=== PATIENT | male | born 1940 ===

== ENCOUNTER 2023-01-15 17:57 | Emergency (ER) | payer MEDICAID, SELFPAY ==
[2023-01-15 18:09] VITALS: BP 110/70; PULSE 88; O2SAT 98
[2023-01-15 18:24] VITALS: BP 106/54; PULSE 81; RESP 18; TEMP 36.9; O2SAT 98; BMI 23.3
[2023-01-15 18:28] VITALS: RESP 18
--- NOTE | 2023-01-15 18:32 | PC.NURSE ---
Pt coming from SN[facility] with unknown mental status baseline, unwitnessed fall, unsure of LOC, pt not on blood thinners,patient alert to self. respirations equal and unlabored. skin warm, pink and moist. denies pain. left hand swollen.
--- NOTE | 2023-01-15 19:49 | ED.GENADULT ---
HPI - General Adult General Chief complaint: Altered Mental Status Stated complaint: BROOKS W/AMS SINCE 9AM,FALL DAYS AGO, FROM SNF Time Seen by Provider: 01/15/23 19:33 Source: patient, EMS and RN notes reviewed Mode of arrival: EMS Limitations: altered mental status History of Present Illness HPI narrative: 82-year-old male [facility] from [facility] for evaluation of left-sided swelling and headache. Patient was diagnosed with GBM and due to low blood counts patient is only getting palliative chemotherapy with no further surgery or radiation patient normally is delusional and confused at times baseline mental status is not entirely clear. Patient is complaining of headache that he described as 4/5, headache has been going for few months it is waxing and weaning. Related Data Allergies Allergy/AdvReac Type Severity Reaction Status Date / Time codeine Allergy Unknown Verified 01/15/23 23:26 Review of Systems Review of Systems: Yes all other systems are reviewed and are negative [facility] Social History Social History Alcohol intake: never Smoked in Last 30 Days: No Use of substances other than those prescribed or required for medical reasons: No Advance Directives: No Advance Directives Information Provided: No Physical Exam ED Vital Signs: Vital Signs - 24 hr 01/15/23 18:24 01/15/23 18:28 01/15/23 20:03 Temperature 98.4 F 98.3 F Pulse Rate 81 75 Respiratory Rate 18 18 14 Blood Pressure 106/54 L 115/43 L Pulse Oximetry 98 97 Oxygen Delivery Method Room Air Room Air 01/15/23 21:54 Temperature Pulse Rate 80 Respiratory Rate 13 Blood Pressure 118/40 L Pulse Oximetry Oxygen Delivery Method BMI result Body Mass Index 23.3 Vital signs have been reviewed as appeared to be correct. Blood pressure normal. Heart rate normal. Respiration rate normal. Temperature normal. Oxygen saturation normal. Appearance: Alert. Oriented. No acute distress. Head: Normal external exam. Normocephalic. Atraumatic. No Blair signs noted. No raccoon eyes noted Eyes: PERRLA. EOMI. Conjunctiva and sclera normal. Eyelids normal. ENT: TM's Normal. Pharynx normal. Uvula midline. Moist mucous membranes. No trismus noted. No drooling noted. No muffled voice noted. Neck: Normal inspection. Neck supple. FROM. No adenopathy. Thyroid Normal. No meningeal signs. No neck mass noted. Midline tenderness of the cervical spine, no step-off, deformity. CVS: Normal heart rate and rhythm. Heart sound normal. No murmurs noted. Pulses normal throughout. Respiratory: No respiratory distress. Painless inspiration. Breath sounds normal. No wheezes/rales/rhonchi noted. Chest nontender. No accessory muscle usage noted or decreased air movement noted. Abdomen: Soft and nontender. Bowel sounds normal in all 4 quadrants. No distention noted. No organomegaly noted. No visible injury noted. Back: No CVA tenderness. Full range of motion noted. Skin: Skin warm and dry. Normal skin color. Normal skin turgor. No rashes/lesions/lacerations noted. Extremities: No lower extremity edema. Extremities exhibit normal range of motion. Extremities nontender. Neuro: Oriented. Cranial nerve exam: II-XII are grossly intact No motor deficit. No sensory deficit. Reflexes normal. Course Course Course Narrative: 82-year-old male complaining of headache and neck pain C-spine show indeterminate posterior lateral arch of C1 and nondisplaced lateral mass C2 fracture. Neurovascularly intact to both upper extremities no deficit, no weakness. The case was discussed with Dr. pelletier at [facility] patient was accepted to be evaluated by trauma team at [facility], will arrange for transportation. C-spine immobilization precaution was applied. Medical Decision Making Differential Diagnosis Differential Diagnoses: The differential diagnosis associated with the presentation includes (Intra cranial bleed, cervical spine fracture, severe anemia, electrolytes abnormalities, neurological deficit.) Admission/Observation Consideration of admission/observation: Escalation of care including admission/observation considered Lab Data MDM Lab Attestation statement: I reviewed the patient's lab results. 01/15/23 19:50 01/15/23 19:50 Labs: Lab Results 01/15/23 01/15/23 01/15/23 Range/Units 19:50 19:50 19:50 WBC 7.4 (4.8-10.8) X10*3/uL RBC 3.47 L (4.60-5.80) X10*6/uL Hgb 10.8 L (14.0-18.0) g/dl Hct 33.1 L (42.0-52.0) % MCV 95.4 (80.0-98.0) fL MCH 31.1 (27.0-33.0) pg MCHC 32.6 (31.0-36.0) g/dl RDW 13.9 (11.0-16.0) % Plt Count 170 (160-400) X10*3/uL MPV 9.0 L (9.4-12.4) fL Immature Gran % (Auto) 0.3 (0.0-0.4) % Neut % (Auto) 74.6 H (45-73) % Lymph % (Auto) 15.5 L (20-40) % [place] % (Auto) 6.5 (2-11) % Eos % (Auto) 2.8 (0-4) % Baso % (Auto) 0.3 (0-2) % Lymph # (Auto) 1.1 L (1.2-4.9) X10*3/uL [place] # (Auto) 0.5 (0.1-1.2) X10*3/uL Eos # (Auto) 0.2 (0.0-0.4) X10*3/uL Baso # (Auto) 0.0 (0.0-0.2) X10*3/uL Abs Immat Gran (auto) 0.02 (0.00-0.03) X10*3/uL Absolute Neuts (auto) 5.5 (2.0-8.3) x10*3/uL Absolute Nucleated RBC 0.000 (0.0-0.012) X10*3/uL Nucleated RBC % (auto) 0.0 (0.0-0.2) /100WBC Sodium 142 (135-145) mmol/L Potassium 3.7 (3.3-5.1) mmol/L Chloride 107 (96-108) mmol/L Carbon Dioxide 26 (22-29) mmol/L Anion Gap 13 (12-20) BUN 19 H (9-16) mg/dL Creatinine 1.01 (0.5-1.4) mg/dL Estim Creat Clear Calc 62.9 Estimated GFR > 60 Random Glucose 95 (60-115) mg/dL Calcium 10.0 (8.4-10.2) mg/dL Magnesium 1.9 (1.6-2.6) mg/dL Total Bilirubin 0.2 (0.0-1.0) mg/dL AST 11 (5-37) U/L ALT 9 (0-40) U/L Alkaline Phosphatase 79 (39-117) U/L Troponin I High Sens 4.9 (<3.5-35.0) ng/L B-Natriuretic Peptide (<100) pg/mL Total Protein 6.5 (6.5-8.0) g/dL Albumin 3.4 L (3.5-5.0) g/dL 01/15/23 Range/Units 19:50 WBC (4.8-10.8) X10*3/uL RBC (4.60-5.80) X10*6/uL Hgb (14.0-18.0) g/dl Hct (42.0-52.0) % MCV (80.0-98.0) fL MCH (27.0-33.0) pg MCHC (31.0-36.0) g/dl RDW (11.0-16.0) % Plt Count (160-400) X10*3/uL MPV (9.4-12.4) fL Immature Gran % (Auto) (0.0-0.4) % Neut % (Auto) (45-73) % Lymph % (Auto) (20-40) % [place] % (Auto) (2-11) % Eos % (Auto) (0-4) % Baso % (Auto) (0-2) % Lymph # (Auto) (1.2-4.9) X10*3/uL [place] # (Auto) (0.1-1.2) X10*3/uL Eos # (Auto) (0.0-0.4) X10*3/uL Baso # (Auto) (0.0-0.2) X10*3/uL Abs Immat Gran (auto) (0.00-0.03) X10*3/uL Absolute Neuts (auto) (2.0-8.3) x10*3/uL Absolute Nucleated RBC (0.0-0.012) X10*3/uL Nucleated RBC % (auto) (0.0-0.2) /100WBC Sodium (135-145) mmol/L Potassium (3.3-5.1) mmol/L Chloride (96-108) mmol/L Carbon Dioxide (22-29) mmol/L Anion Gap (12-20) BUN (9-16) mg/dL Creatinine (0.5-1.4) mg/dL Estim Creat Clear Calc Estimated GFR Random Glucose (60-115) mg/dL Calcium (8.4-10.2) mg/dL Magnesium (1.6-2.6) mg/dL Total Bilirubin (0.0-1.0) mg/dL AST (5-37) U/L ALT (0-40) U/L Alkaline Phosphatase (39-117) U/L Troponin I High Sens (<3.5-35.0) ng/L B-Natriuretic Peptide 92 (<100) pg/mL Total Protein (6.5-8.0) g/dL Albumin (3.5-5.0) g/dL Independent Interpretation I performed an independent interpretation of an: CT Scan (Head and neck: 4 mm mass effect with vasogenic edema in the right frontoparietal area. C1/C2 nondisplaced fracture.) Radiology Impression Discussion of test interpretation with radiology: I have reviewed the radiologist's reading. Independent Historian Clinical information obtained from an independent historian. History obtained from or confirmed by: Other ([facility] record, [facility] note.) External Record Review External record reviewed: Inpatient record and Outpatient record Discharge Plan Discharge Clinical Impression: Closed cervical spine fracture, Headache, GBM (glioblastoma multiforme) Patient Disposition: [facility]
[2023-01-15 20:03] VITALS: BP 115/43; PULSE 75; RESP 14; TEMP 36.8; O2SAT 97
--- NOTE | 2023-01-15 20:15 | PC.NURSE ---
pt bp 115/43 pt laying on L side refusing to lay on back this rn made dr kearns aware of bp. per md hold on iv placement at this time. awaiting lab results and imaging
[2023-01-15 21:54] VITALS: BP 118/40; PULSE 80; RESP 13
--- NOTE | 2023-01-15 22:36 | MHC.EDTECH ---
[facility] called at [phone] for medical records per ,spoke with Tracy,awaiting fax at this time.
[2023-01-16 01:31] VITALS: BP 102/45; PULSE 73; RESP 13; TEMP 36.9; O2SAT 97
--- NOTE | 2023-01-16 01:40 | MHC.EDTECH ---
[facility] tx line called @ 0110 per , spoke with Maggie gave patient info,awaiting a call back.
--- NOTE | 2023-01-16 01:42 | MHC.EDTECH ---
Received a call back @ 0116 from [facility], after speaking with Dr. Bacon patient was accepted by Dr. Kerr to the Emergency Room.RN aware Nurse to Nurse report [phone] [facility] called @ 0126 for a BLS transfer,spoke with Yomi he gave an ETA of 45Mins. RN aware
[2023-01-16 01:49] LABS: COVID-19 Test Negative (Negative); IDNOW Serial# 6674DD1D
--- NOTE | 2023-01-16 02:13 | PC.NURSE ---
late entry-iv placed in L FA 22g and 20g in Right FA
--- NOTE | 2023-01-16 02:20 | PC.NURSE ---
late entry- pt non compliant with c collar placement. this r rn made nurse charge rn aware and dr kearns aware.
--- NOTE | 2023-01-16 02:20 | PC.NURSE ---
report given to ems at time of transfer. this rn gave nurse to nurse report to [facility] at [facility] ED.
--- NOTE | 2023-01-16 02:28 | PC.NURSE ---
this rn called and spoke with nurse casiano at [facility]. made rn aware that pt had been transferred to [facility] for trauma transfer due to C1 and C2 fractures.
== END 2023-01-16 02:30 | disposition short-term general hospital (02) ==
PROVIDERS: Emergency Provider Emergency Medicine; PCP Emergency Medicine
DX: S12.000A Unspecified displaced fracture of first cervical vertebra, initial encounter for closed fracture (principal); S12.101A Unspecified nondisplaced fracture of second cervical vertebra, initial encounter for closed fracture; W19.XXXA Unspecified fall, initial encounter; R51.9 Headache, unspecified; R60.9 Edema, unspecified; C71.9 Malignant neoplasm of brain, unspecified; Z20.822 Contact with and (suspected) exposure to COVID-19; Y93.9 Activity, unspecified; Y92.129 Unspecified place in nursing home as the place of occurrence of the external cause; Y99.9 Unspecified external cause status; Z92.21 Personal history of antineoplastic chemotherapy
CPT/HCPCS: 36415; 70450; 72125; 80053; 83735; 83880; 84484; 85025; 87635; 93005; 93971; 99285